=== PATIENT | female | born 1945 | race Two or more races ===

== ENCOUNTER 2021-03-24 12:23 | Emergency (ER) | payer MEDICARE ==
[~2021-03-24] VITALS: Ht 162.6 cm; Wt 72.7 kg
[2021-03-24 16:19] LABS: URINE AMPHETAMINE SCREEN NEGATIVE (Neg); URINE BARBITUATE SCREEN NEGATIVE (Neg); URINE BENZODIAZEPINES SCREEN NEGATIVE (Neg); URINE CANNABINOID SCREEN NEGATIVE (Neg); URINE COCAINE SCREEN NEGATIVE (Neg); URINE METHADONE SCREEN NEGATIVE (Neg); URINE OPIATE SCREEN NEGATIVE (Neg); URINE PHENCYCLIDINE SCREEN NEGATIVE (Neg)
[2021-03-24 16:27] LABS: BASOPHILS % (AUTO) 0.4 % (0-1); EOSINOPHILS % (AUTO) 0.2 % (0-6); HEMATOCRIT 44.2 % (35.0-45.0); HEMOGLOBIN 15.5 g/dl (12.0-16.0); LYMPHOCYTES # (AUTO) 1.6 X10'3 (1.1-4.8); LYMPHOCYTES % (AUTO) 15.5 % (21-51); MEAN CORPUSCULAR HEMOGLOBIN 31.8 PG (27.0-31.0); MEAN CORPUSCULAR VOLUME 90.8 FL (78-98); MEAN PLATELET VOLUME 9.7 FL (7.4-10.4); MONOCYTES # (AUTO) 2.9 X10'3 (0-0.9); MONOCYTES % (AUTO) 28.4 % (2-12); NEUTROPHILS # (AUTO) 5.6 X10'3 (1.8-7.7); NEUTROPHILS % (AUTO) 55.5 % (42-75); PLATELET COUNT 214 X10'3 (140-440); RED BLOOD COUNT 4.87 X10'6 (4.20-5.60); RED CELL DISTRIBUTION WIDTH 15.5 % (11.5-14.5); WHITE BLOOD COUNT 10.1 X10'3 (4.5-11.0)
[2021-03-24 16:42] LABS: ALANINE AMINOTRANSFERASE 39 U/L (12-78); ALBUMIN 4.5 G/DL (3.4-5.0); ALBUMIN/GLOBULIN RATIO 1.5 (1.1-1.5); ALKALINE PHOSPHATASE 64 IU/L (46-116); ANION GAP 15 (8-16); ASPARTATE AMINO TRANSFERASE 24 U/L (10-37); BILIRUBIN,TOTAL 1.3 MG/DL (0.1-1.0); BLOOD UREA NITROGEN 11 MG/DL (7-18); BUN/CREATININE RATIO 11.6 (6.6-38.0); CALCIUM 9.3 MG/DL (8.5-10.1); CHLORIDE 100 MMOL/L (99-107); CREATININE 0.95 MG/DL (0.40-0.90); ETHANOL < 0.010 GM/DL (0.0-0.010); GLUCOSE 94 MG/DL (70-104); SODIUM 142 MMOL/L (135-145); TOTAL CARBON DIOXIDE 26.7 MMOL/L (24-32); TOTAL PROTEIN 7.5 G/DL (6.4-8.2); eGFR 57 ML/MIN
[2021-03-24 16:49] LABS: PLATELET ESTIMATE NORMAL; POTASSIUM 2.8 MMOL/L (3.5-5.1); TOTAL CELLS COUNTED 100
[2021-03-24 16:50] LABS: ANISOCYTOSIS 1+; BURR CELLS 2+
[2021-03-24] MEDS ORDERED: potassium Cl 20 mEq SR tablet PO ONE (16:55)
--- NOTE | 2021-03-24 17:30 | NUR ---
Pt brought over to [facility] from main ER at 1600. Pt hyperverbal at times and appears anxious. Pt seen by KATHLEEN Rodriguez and will be worked up for neurological issues and currently not requesting an eval from [facility]. Pt cooperative and had labs drawn and gave urine sample.
[2021-03-24 17:50] LABS: CLARITY,URINE CLOUDY (Clear); COLOR,URINE YELLOW (Yellow); GLUCOSE, URINE NEGATIVE (Neg); KETONES,URINE >=80 mg/dl (Neg); LEUKOCYTE ESTERASE ,URINE NEGATIVE (Neg); NITRITES, URINE NEGATIVE (Neg); OCCULT BLOOD,URINE NEGATIVE (Neg); PROTEIN,URINE 30 mg/dl (Neg); UROBILINOGEN,URINE 0.2 E.U/dL (0.2-1.0)
[2021-03-24 17:55] LABS: UA COLLECTION TYPE CLN CATCH MIDSTREAM
[2021-03-24 17:56] LABS: MUCUS STRANDS MANY /LPF (Neg); SQUAMOUS EPITHELIAL CELL,UR MANY /LPF (FEW)
[2021-03-24 17:57] LABS: BACTERIA,URINE 2+ /HPF (Neg); RBC,URINE 0-2 /HPF (0-2); WBC,URINE 0-4 /HPF (0-4)
[2021-03-24] MEDS ORDERED: POTA-188 PO (18:51)
--- NOTE | 2021-03-24 19:00 | NUR ---
One to one the patient and the patient's . The patient was recently discharged from [facility] on altagracia. She is sleeping Okay per her and the . She is not a danger to herself or others. She lives with her and he has been taking care of her. While at [facility] she was tapered off her Lamictal. She is alert and and oriented. She has halting speech.
[2021-03-24 20:12] VITALS: BP 158/76
== END 2021-03-24 20:16 | disposition home or self-care (01) ==
LOC: ER 12:24
DX: F31.9 Bipolar disorder, unspecified (principal); E87.6 Hypokalemia; Z79.899 Other long term (current) drug therapy
CPT/HCPCS: 36415; 80053; 80305; 80320; 81001; 82542; 85007; 85025; 99283